=== PATIENT | female | born 1960 | race Two or more races ===

== ENCOUNTER 2017-08-14 23:49 | Emergency (ER) | payer BC, OTHER ==
[~2017-08-14] VITALS: Ht 170.2 cm; Wt 68.0 kg
--- NOTE | 2017-08-15 00:02 | NUR ---
PATIENT RECIEVED FROM HOME C/O CONGESTION/THROAT SWEELING FOLLOWING TAKING A MEDICATIONS (TRAZODONE) FOR SLEEP/DEPRESSION. NO SOB NOTED UPON ASSESSMENT. NO PAIN. A/O X4 ABLE TO MAKE NEEDS KNOWN. WILL CONTINUE TO MONITOR FOR ANY CHANGES.
[2017-08-15] MEDS ORDERED: DEXAMETHASONE SOD PHOSPHATE 10 MG/ML VIAL ONE (00:10)
[2017-08-15] MEDS ORDERED: FAMOTIDINE (20 MG) 20 MG TABLET ONE (00:10)
[2017-08-15] MEDS: FAMOTIDINE (20 MG) 20 MG TABLET PO ONE (00:16)
[2017-08-15] MEDS: DEXAMETHASONE SOD PHOSPHATE 4 MG/ML VIAL IM ONE (00:16)
--- NOTE | 2017-08-15 00:29 | NUR ---
IV FLUIDS STARTED IN LEFT HAND 20G. WILL CONTINUE TO MONITOR
--- NOTE | 2017-08-15 00:40 | NUR ---
PATIENT IS STABLE IN BED WITH FAMILY
--- NOTE | 2017-08-15 01:50 | NUR ---
INFORMATION GIVEN TO PT FOR D/C AND F/U IN STABLE CONDITION
[2017-08-15 01:51] VITALS: BP 121/80
== END 2017-08-15 01:52 | disposition home or self-care (01) ==
LOC: ER 23:50
DX: T43.215A Adverse effect of selective serotonin and norepinephrine reuptake inhibitors, initial encounter (principal); F41.9 Anxiety disorder, unspecified; Z90.710 Acquired absence of both cervix and uterus; Z88.6 Allergy status to analgesic agent; Z88.0 Allergy status to penicillin; Y92.89 Other specified places as the place of occurrence of the external cause
CPT/HCPCS: 96372; 99283; J1100; A4606; Z7610

== ENCOUNTER 2017-12-20 19:04 | Emergency (ER) | payer BC ==
[~2017-12-20] VITALS: Ht 167.6 cm; Wt 68.0 kg
--- NOTE | 2017-12-20 19:20 | NUR ---
PT CAME IN REPORTS OF SWOLLEN THROAT AND COUGHINH AFTER TAKING 5MG VALIUM FOR ANXIETY. PT REPORTS HAVING SIMILAR SYMPTOMS FROM VPREVIOUS VALIUM INTAKE. VSS. NO LABORED BREATHING NOTED. SEEN BY [facility] AND [employer] FOR EVAL. IV ACCESS STARTED. SAFETY AND COMFORT MEASURES PROVIDED. WILL MONITOR.
[2017-12-20] MEDS ORDERED: diphenhydrAMINE HCL 50 MG/ML VIAL ONE ×2 (19:24→21:26)
[2017-12-20] MEDS ORDERED: EPINEPHRINE (1:10,000) SYRINGE 1 MG/10 ML DISP.SYRIN ONE (19:24)
[2017-12-20] MEDS ORDERED: methylPREDNISolone SOD SUCC 125 MG/2ML VIAL ONE (19:24)
[2017-12-20] MEDS ORDERED: FAMOTIDINE/PF INJ 20 MG/2 ML VIAL IV ONE ×2 (19:24→19:30)
[2017-12-20] MEDS ORDERED: EPINEPHRINE (1:1000) 1 MG/ML AMPUL ONE (19:25)
[2017-12-20] MEDS ORDERED: methylPREDNISolone SOD SUCC 125 MG/2ML VIAL IV ONE (19:30)
[2017-12-20] MEDS ORDERED: diphenhydrAMINE HCL 50 MG/ML VIAL IV ONE ×2 (19:30→21:30)
[2017-12-20] MEDS ORDERED: EPINEPHRINE (1:1000) MDV 30 MG/30ML VIAL SUBCUT ONE ×2 (19:30→22:00)
--- NOTE | 2017-12-20 19:30 | NUR ---
PT MEDICATED ORDERED.
--- NOTE | 2017-12-21 00:18 | NUR ---
Patient discharged to home in stable condition. Written and verbal after care instructions given. Patient verbalizes understanding of instruction.IV removed. Catheter intact and site benign. Pressure and 4x4 applied to site. No bleeding noted. VSS upon discharge
[2017-12-21 00:24] VITALS: BP 139/81
== END 2017-12-21 00:29 | disposition home or self-care (01) ==
LOC: ER 19:11
DX: T42.4X5A Adverse effect of benzodiazepines, initial encounter (principal); F41.9 Anxiety disorder, unspecified; Z90.710 Acquired absence of both cervix and uterus; Z88.0 Allergy status to penicillin; Z88.8 Allergy status to other drugs, medicaments and biological substances; Z91.018 Allergy to other foods; Z88.6 Allergy status to analgesic agent; Y92.89 Other specified places as the place of occurrence of the external cause
CPT/HCPCS: A4606; J0171; J1200; J2930; J3490; Z7610

== ENCOUNTER 2017-12-21 11:39 | Emergency (ER) | payer BC ==
[~2017-12-21] VITALS: Ht 170.2 cm; Wt 68.0 kg
[2017-12-21] MEDS ORDERED: EPINEPHRINE (1:1000) MDV 30 MG/30ML VIAL ONE (12:05)
[2017-12-21] MEDS ORDERED: EPINEPHRINE (1:1000) 1 MG/ML AMPUL ONE (12:07)
[2017-12-21] MEDS: EPINEPHRINE (1:1000) MDV 30 MG/30ML VIAL SUBCUT ONE (12:11)
[2017-12-21] MEDS ORDERED: diphenhydrAMINE HCL 50 MG/ML VIAL ONE (12:20)
[2017-12-21 12:25] VITALS: BP 139/78
--- NOTE | 2017-12-21 12:34 | NUR ---
RECEIVED VERBAL ORDER FROM PAU TO GIVE 25MG BENARYL IM. ORDER CARRIED OUT.
[2017-12-21] MEDS: diphenhydrAMINE HCL 50 MG/ML VIAL IM ONE (13:47)
== END 2017-12-21 13:49 | disposition home or self-care (01) ==
LOC: ER 11:39
DX: T78.40XA Allergy, unspecified, initial encounter (principal); X58.XXXA Exposure to other specified factors, initial encounter; F41.9 Anxiety disorder, unspecified; F10.10 Alcohol abuse, uncomplicated; Z88.0 Allergy status to penicillin; Z91.018 Allergy to other foods; Z88.8 Allergy status to other drugs, medicaments and biological substances; Z98.890 Other specified postprocedural states
CPT/HCPCS: A4606; J0171; J1200; Z7610

== ENCOUNTER 2018-01-06 23:31 | Emergency (ER) | payer BC ==
[~2018-01-06] VITALS: Ht 167.6 cm; Wt 68.0 kg
--- NOTE | 2018-01-06 23:40 | NUR ---
PT BIB FAMILY, PT C/O ALLERGIC REACTION X 30 MINUTES S/P EATING BREAD WITH NUTS. PT DENIES N/V/D. PT STATES "MY THROAT IS SWOLLEN". PT STATES SHE HAS A EPIPEN BUT DID NOT USE IT. PT IS AAOX4. SPO2 100% ON RA. PT NOTED TO BE ANXIOUS. PT DENIES HAVING ANY PAIN. RESP EVEN AND UNLABORED. VSS. NO S/S OF ACUTE DISTRESS NOTED. SKIN WNL. PT SAFETY AND COMFORT MEASURES IN PLACE. 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 AWAITING MD FOR EVAL.
[2018-01-06] MEDS ORDERED: methylPREDNISolone SOD SUCC 125 MG/2ML VIAL ONE (23:55)
[2018-01-06] MEDS ORDERED: FAMOTIDINE/PF INJ 20 MG/2 ML VIAL IV ONE (23:55)
[2018-01-07] MEDS ORDERED: methylPREDNISolone SOD SUCC 125 MG/2ML VIAL IV ONE
[2018-01-07] MEDS ORDERED: IV NS 0.9% 1,000 ML BAG IV ONE
[2018-01-07] MEDS ORDERED: FAMOTIDINE/PF INJ 20 MG/2 ML VIAL IV ONE ×2 (00:06)
--- NOTE | 2018-01-07 00:37 | NUR ---
pt states she feels better and would like to go home. made aware.
[2018-01-07 00:42] VITALS: BP 146/84
--- NOTE | 2018-01-07 00:43 | NUR ---
Patient discharged to home in stable condition. Written and verbal after care instructions along with RX given. Patient verbalizes understanding of instruction.IV removed. Catheter intact and site benign. Pressure and 4x4 applied to site. No bleeding noted. VSS. Pt walked with steady gait out of ER accompanied by .
== END 2018-01-07 00:43 | disposition home or self-care (01) ==
LOC: ER 23:33
DX: T78.49XA Other allergy, initial encounter (principal); F41.9 Anxiety disorder, unspecified; Z90.710 Acquired absence of both cervix and uterus; Z88.0 Allergy status to penicillin; Z88.6 Allergy status to analgesic agent; Z91.018 Allergy to other foods; X58.XXXA Exposure to other specified factors, initial encounter
CPT/HCPCS: A4606; J2930; J3490; J7030; Z7610

== ENCOUNTER 2018-01-28 03:26 | Emergency (ER) | payer BC ==
[~2018-01-28] VITALS: Ht 170.2 cm; Wt 68.0 kg
[2018-01-28 03:29] VITALS: BP 149/74
== END 2018-01-28 04:43 | disposition home or self-care (01) ==
LOC: ER 03:29
DX: T78.40XA Allergy, unspecified, initial encounter (principal); F41.9 Anxiety disorder, unspecified; F10.10 Alcohol abuse, uncomplicated; Z88.0 Allergy status to penicillin; Z88.6 Allergy status to analgesic agent; Z90.710 Acquired absence of both cervix and uterus; Z88.8 Allergy status to other drugs, medicaments and biological substances; Z91.018 Allergy to other foods
CPT/HCPCS: A4606; Z7610

== ENCOUNTER 2020-07-10 14:15 | Emergency (ER) | payer BC ==
[~2020-07-10] VITALS: Ht 167.6 cm; Wt 68.0 kg
--- NOTE | 2020-07-10 14:25 | NUR ---
PT came to ER with c/o left sided chest pain radiating to left arm since this morning. no SOB. no diaphoresis. pt able to ambulate with steady gait. awaiting for MD yi
[2020-07-10] MEDS: IV NS 0.9% 500 ML BAG IV ONE (15:10)
[2020-07-10 15:29] LABS: BASOPHILS % (AUTO) 0.7 % (0.0-2.0); EOSINOPHILS % (AUTO) 1.9 % (0.0-6.0); HEMATOCRIT 42 % (33-45); HEMOGLOBIN 14.3 g/dL (11.5-14.8); LYMPHOCYTES # (AUTO) 2.4 /CMM (0.8-4.8); LYMPHOCYTES % (AUTO) 39.1 % (20.0-44.0); MEAN CORPUSCULAR HGB CONC 34 g/dl (31.0-36.0); MEAN CORPUSCULAR VOLUME 89 fL (82-100); MONOCYTES # (AUTO) 0.5 /CMM (0.1-1.30); NEUTROPHILS % (AUTO) 50.3 % (43.0-81.0); PLATELET COUNT (AUTO) 252 /CMM (150-450); RED BLOOD CELL COUNT(AUTO) 4.75 MIL/uL (4.0-5.2)
[2020-07-10 15:42] LABS: CALCIUM, SERUM 9.3 mg/dL (8.5-10.1); CARBON DIOXIDE 32 mmol/L (21-32); CHLORIDE 102 mmol/L (98-107); CREATININE 0.8 mg/dL (0.6-1.3); GLUCOSE 102 mg/dL (74-106); POTASSIUM 3.5 mmol/L (3.5-5.1); SODIUM SERUM 140 mmol/L (136-145); UREA NITROGEN, BLOOD 11 mg/dL (7-18)
[2020-07-10 15:53] LABS: B-TYPE NATRIURETIC PEPTIDE 35 PG/ML (0-125)
[2020-07-10 16:45] VITALS: BP 121/78
== END 2020-07-10 16:45 | disposition home or self-care (01) ==
LOC: ER 14:20
DX: R07.89 Other chest pain (principal); F41.9 Anxiety disorder, unspecified; E78.00 Pure hypercholesterolemia, unspecified; Z98.890 Other specified postprocedural states; Z88.0 Allergy status to penicillin; Z88.6 Allergy status to analgesic agent; Z88.8 Allergy status to other drugs, medicaments and biological substances; Z91.013 Allergy to seafood
CPT/HCPCS: 36415; 71045; 80048; 83880; 84484; 85025; 85378; 93005 ×3; 96360; 99285; J7040

== ENCOUNTER 2020-11-18 04:21 | Emergency (ER) | payer BC ==
[~2020-11-18] VITALS: Ht 167.6 cm; Wt 68.0 kg
[2020-11-18 04:21] VITALS: BP 129/67
[2020-11-18] MEDS ORDERED: diphenhydrAMINE HCL 50 MG/ML VIAL IM ONE (04:30)
[2020-11-18] MEDS ORDERED: diphenhydrAMINE HCL 50 MG/ML VIAL ONE (04:31)
[2020-11-18] MEDS ORDERED: PANT40TA2 PO (05:40)
== END 2020-11-18 06:05 | disposition home or self-care (01) ==
LOC: ER 04:22
DX: R45.1 Restlessness and agitation (principal); T45.0X5A Adverse effect of antiallergic and antiemetic drugs, initial encounter; F41.9 Anxiety disorder, unspecified; R44.3 Hallucinations, unspecified; E78.00 Pure hypercholesterolemia, unspecified; F10.10 Alcohol abuse, uncomplicated; Y90.9 Presence of alcohol in blood, level not specified; Z90.710 Acquired absence of both cervix and uterus; Z88.0 Allergy status to penicillin; Z88.6 Allergy status to analgesic agent; Z88.8 Allergy status to other drugs, medicaments and biological substances; Z91.018 Allergy to other foods; Z79.899 Other long term (current) drug therapy; Y92.89 Other specified places as the place of occurrence of the external cause
CPT/HCPCS: 96372; 99283; J1200

== ENCOUNTER 2021-08-06 01:23 | Emergency (ER) | payer BC ==
[~2021-08-06] VITALS: Ht 170.2 cm; Wt 65.8 kg
[~2021-08-06 01:23] MED LIST: PANT40TA2 PO
[2021-08-06 02:03] VITALS: BP 128/82
[2021-08-06] MEDS ORDERED: CLIN150C16 PO (02:27)
[2021-08-06] MEDS ORDERED: CLINDAMYCIN HCL 150 MG CAPSULE ONE (02:30)
[2021-08-06] MEDS ORDERED: CLINDAMYCIN HCL 150 MG CAPSULE PO ONE (02:30)
== END 2021-08-06 02:42 | disposition home or self-care (01) ==
LOC: ER 01:27
DX: M67.441 Ganglion, right hand (principal); L08.9 Local infection of the skin and subcutaneous tissue, unspecified; F41.9 Anxiety disorder, unspecified; E78.00 Pure hypercholesterolemia, unspecified; Z98.890 Other specified postprocedural states; Z88.0 Allergy status to penicillin; Z88.8 Allergy status to other drugs, medicaments and biological substances; Z88.6 Allergy status to analgesic agent; Z91.018 Allergy to other foods

== ENCOUNTER 2022-01-16 04:30 | Emergency (ER) | payer BC ==
[~2022-01-16] VITALS: Ht 170.2 cm; Wt 68.0 kg
[~2022-01-16 04:30] MED LIST changes: +CLIN150C16 PO
[2022-01-16 04:39] VITALS: BP 133/85
[2022-01-16] MEDS ORDERED: METH4TAB17 PO (04:43)
[2022-01-16] MEDS ORDERED: CETI-90 PO (04:43)
== END 2022-01-16 04:54 | disposition home or self-care (01) ==
LOC: ER 04:33
DX: T78.40XA Allergy, unspecified, initial encounter (principal); F41.9 Anxiety disorder, unspecified; E78.00 Pure hypercholesterolemia, unspecified; Z90.710 Acquired absence of both cervix and uterus; Z88.8 Allergy status to other drugs, medicaments and biological substances; Z79.899 Other long term (current) drug therapy; X58.XXXA Exposure to other specified factors, initial encounter

== ENCOUNTER 2024-07-14 16:59 | Emergency (ER) | payer BC, OTHER ==
[~2024-07-14] VITALS: Ht 167.6 cm; Wt 65.8 kg
[~2024-07-14 16:59] MED LIST changes: +CETI-90 PO; +METH4TAB17 PO
[2024-07-14 18:26] LABS: BASOPHILS % (AUTO) 0.9 % (0.0-2.0); EOSINOPHILS # (AUTO) 0.2 K/uL (0.0-0.7); EOSINOPHILS % (AUTO) 4.1 % (0.0-6.0); HEMATOCRIT 40 % (33-45); HEMOGLOBIN 13.3 g/dL (11.5-14.8); LYMPHOCYTES # (AUTO) 2.3 K/uL (0.8-4.8); LYMPHOCYTES % (AUTO) 44.1 % (20.0-44.0); MEAN CORPUSCULAR HEMOGLOBIN 30 PG (26.0-33.0); MEAN CORPUSCULAR HGB CONC 33 g/dl (31.0-36.0); MEAN CORPUSCULAR VOLUME 90 fL (82-100); MONOCYTES # (AUTO) 0.5 K/uL (0.1-1.30); MONOCYTES % (AUTO) 9.2 % (2.0-12.0); NEUTROPHILS # (AUTO) 2.2 K/uL (1.8-8.9); NEUTROPHILS % (AUTO) 41.7 % (43.0-81.0); PLATELET COUNT (AUTO) 246 K/uL (150-450); RED BLOOD CELL COUNT(AUTO) 4.43 MIL/uL (4.0-5.2); RED CELL DISTRIBUTION WIDTH 13.8 % (11.5-15.0); WHITE BLOOD COUNT (AUTO) 5.2 K/uL (4.3-11.0)
[2024-07-14 18:34] LABS: CALCIUM, SERUM 8.9 mg/dL (8.5-10.1); CARBON DIOXIDE 27 mmol/L (21-32); CHLORIDE 106 mmol/L (98-107); CREATININE 0.7 mg/dL (0.6-1.3); GLUCOSE 123 mg/dL (74-106); POTASSIUM 3.1 mmol/L (3.5-5.1); SODIUM SERUM 142 mmol/L (136-145); UREA NITROGEN, BLOOD 9 mg/dL (7-18)
[2024-07-14 18:40] LABS: ALANINE AMINOTRANSFERASE 40 U/L (12-78); ALKALINE PHOSPHATASE 62 U/L (46-116); ASPARTATE AMINOTRANSFERASE 25 U/L (15-37); BILIRUBIN,DIRECT 0.1 mg/dL (0.0-0.2); BILIRUBIN,TOTAL 0.2 mg/dL (0.2-1.0); TOTAL PROTEIN, SERUM 6.9 g/dL (6.4-8.2)
[2024-07-14] MEDS ORDERED: POTASSIUM CHLORIDE 20 MEQ TAB.PRT.SR PO ONE (20:32)
[2024-07-14] MEDS: POTASSIUM CHLORIDE 20 MEQ TAB.PRT.SR PO ONE (20:47)
[2024-07-14 20:56] VITALS: BP 126/75; TEMP 98; O2SAT 97
[2024-07-14 23:12] LABS: THYROID STIMULATING HORMONE 0.98 uIU/mL (0.358-3.74)
== END 2024-07-14 20:56 | disposition left against medical advice (07) ==
LOC: ER 17:07
DX: R06.02 Shortness of breath (principal); E87.6 Hypokalemia; R10.817 Generalized abdominal tenderness; E78.00 Pure hypercholesterolemia, unspecified; K21.9 Gastro-esophageal reflux disease without esophagitis; R19.7 Diarrhea, unspecified; F41.9 Anxiety disorder, unspecified; Z79.899 Other long term (current) drug therapy; Z88.0 Allergy status to penicillin; Z88.6 Allergy status to analgesic agent; Z90.710 Acquired absence of both cervix and uterus; Z88.8 Allergy status to other drugs, medicaments and biological substances; Z91.018 Allergy to other foods
CPT/HCPCS: 36415; 71045-TC; 80048-TC; 80076-TC; 83690-TC; 84443-TC; 84484-TC; 85025-TC